=== PATIENT | female | born 1945 | race Two or more races ===

== ENCOUNTER 2023-10-14 02:38 | Emergency (ER) | payer MEDICARE ==
[~2023-10-14] VITALS: Ht 152.4 cm; Wt 65.1 kg
[2023-10-14] MEDS: NITROGLYCERIN 2% (1 GM=INCH) OINTMENT PACKET TP ONE (02:53)
[2023-10-14 02:56] VITALS: PULSE 116; RESP 36; O2SAT 94
[2023-10-14 02:58] VITALS: PULSE 116; RESP 31; O2SAT 94
[2023-10-14 02:58] LABS: BASOPHILS % (AUTO) 0.5 % (0.0-2.0); EOSINOPHILS % (AUTO) 0.7 % (1.0-6.0); HEMATOCRIT 45.4 % (36-46); HEMOGLOBIN 14.5 g/dL (12.0-16.0); LYMPHOCYTES # (AUTO) 8.4 K/uL (1.0-4.8); LYMPHOCYTES % (AUTO) 39.2 % (22.0-44.0); MEAN CORPUSCULAR HEMOGLOBIN 30.3 pg (26.0-34.0); MEAN CORPUSCULAR VOLUME 95 fL (80-100); MONOCYTES % (AUTO) 4.7 % (2.0-9.0); NEUTROPHILS # (AUTO) 11.7 K/uL (1.8-7.7); NEUTROPHILS % (AUTO) 54.9 % (40.0-70.0); PLATELET COUNT (AUTO) 267 K/uL (150-450); RED CELL DISTRIBUTION WIDTH 14.6 % (11.5-14.5); WHITE BLOOD COUNT (AUTO) 21.3 K/uL (4.5-11.0)
[2023-10-14 03:08] LABS: CALCIUM, TOTAL 8.6 mg/dL (8.8-10.5); CREATININE 1.73 mg/dL (0.60-1.30)
[2023-10-14 03:13] LABS: INR 0.9 (0.9-1.1)
[2023-10-14 03:15] LABS: ALBUMIN 3.5 g/dL (3.4-5.0); BILIRUBIN,TOTAL 0.3 mg/dL (0.1-1.0)
[2023-10-14] MEDS: SODIUM CHLORIDE 0.9% 1,000 ML IV ONE (03:15)
[2023-10-14] MEDS: FUROSEMIDE 20 MG/2 ML VIAL IVP ONE ×2 (03:15→04:47)
[2023-10-14 03:16] LABS: TROPONIN I-HIGH SENSITIVITY 14 ng/L (<51)
[2023-10-14] MEDS: CefTRIAXone 1 GM/DEXTROSE 50 ML IV ONE (03:35)
[2023-10-14 03:44] VITALS: TEMP 97.1
[2023-10-14 04:14] LABS: APPEARANCE,URINE HAZY (CLEAR); BILIRUBIN,URINE NEGATIVE (NEGATIVE); COLOR,URINE LIGHT YELLOW (YELLOW); GLUCOSE, URINE (UA) TRACE mg/dL (NEGATIVE); KETONES,URINE NEGATIVE (NEGATIVE); LEUKOCYTE ESTERASE ,URINE LARGE (NEGATIVE); NITRATE,URINE NEGATIVE (NEGATIVE); OCCULT BLOOD,URINE MODERATE (NEGATIVE); PH,URINE 6.5 (5.0-8.0); PROTEIN,URINE 300-600,SEE CONFIRM mg/dL (NEGATIVE); SPECIFIC GRAVITIY, URINE 1.014 (1.003-1.030); UROBILINOGEN,URINE <=1.0 mg/dL (<=1.0)
[2023-10-14 04:15] LABS: LACTIC ACID 2.1 mmol/L (0.4-2.0)
[2023-10-14 04:31] LABS: BACTERIA,URINE Few /HPF (None Seen); SQUAMOUS EPITHELIAL CELL,UR Few /LPF (None Seen); SULFOSALICYLIC ACID,URINE 4+ (Negative)
[2023-10-14] MEDS ORDERED: ACETAMINOPHEN 500 MG TABLET ONE (04:32)
[2023-10-14 04:41] LABS: D-DIMER 0.49 mg/L FEU (0.00-0.50)
[2023-10-14] MEDS: ACETAMINOPHEN 500 MG TABLET PO ONE (04:46)
[2023-10-14 04:58] VITALS: PULSE 93; RESP 35; O2SAT 97
[2023-10-14 05:32] LABS: COVID AG,FIA SOURCE NASAL SWAB
[2023-10-14 06:13] LABS: SARS-COV2 (COVID) ANTIGEN,FIA Negative (Negative)
[2023-10-14 07:18] VITALS: BP 107/66; PULSE 81; RESP 22
== END 2023-10-14 08:17 | disposition admitted as inpatient to this hospital (09) ==
LOC: EMS 02:38
DX: I11.0 Hypertensive heart disease with heart failure (principal); I50.9 Heart failure, unspecified; J18.9 Pneumonia, unspecified organism; R06.03 Acute respiratory distress; E11.9 Type 2 diabetes mellitus without complications; Z20.822 Contact with and (suspected) exposure to COVID-19
CPT/HCPCS: 99291; 96365; 96375; 87426; 80053; 81001; 82550; 83605; 83880; 84484; 85025; 85379; 85610; 85730; 87040; 36415; 87086; 87186; 94660; 71045; 93005; 84145; J0696; J1940; 81002